=== PATIENT | female | born 1965 | race Caucasian/White ===

== ENCOUNTER 2019-01-11 13:15 | Outpatient (CLI) | payer OTHER | END 2019-01-11 13:16 | disposition home or self-care (01) | LOC: RT 13:15 | PROVIDERS: ATTEND Internal Medicine Cardiovascular Disease | DX: Z13.6 Encounter for screening for cardiovascular disorders (principal) | CPT/HCPCS: 93005 ==

== ENCOUNTER 2019-08-04 09:51 | Outpatient (CLI) | payer OTHER | END 2019-08-04 09:52 | disposition EMS.NT | LOC: EMS 09:51 | PROVIDERS: ATTEND Surgery | DX: R22.0 Localized swelling, mass and lump, head (principal); X58.XXXA Exposure to other specified factors, initial encounter ==

== ENCOUNTER 2023-02-05 02:49 | Emergency (ER) | payer MEDICAID, OTHER ==
[2023-02-05] MEDS ORDERED: ONDANSETRON 4 MG/2 ML VIAL IVP STA (03:34)
[2023-02-05] MEDS ORDERED: MORPHINE 2 MG/ML CARPUJECT IVP STA (03:34)
[2023-02-05] MEDS ORDERED: SODIUM CHLORIDE 0.9% 1,000 ML IV STA (03:34)
[2023-02-05 03:35] LABS: BASOPHILS % (AUTO) 0.5 %; EOSINOPHILS # (AUTO) 0.2 10^3/uL (0.0-0.7); HCT - HEMATOCRIT 40.8 % (37.0-47.0); HGB - HEMOGLOBIN 13.1 g/dL (12.0-16.0); LYMPHOCYTES # (AUTO) 2.7 10^3/uL (1.5-3.5); LYMPHOCYTES % (AUTO) 35.4 %; MEAN CORPUSCULAR HEMOGLOBIN 28.9 pg (27.0-31.0); MEAN CORPUSCULAR HGB CONC 32.1 g/dL (32.0-36.0); MEAN CORPUSCULAR VOLUME 90.1 fL (81.0-99.0); MEAN PLATELET VOLUME 10.7 fL (7.9-10.8); MONOCYTES # (AUTO) 0.7 10^3/uL (0.0-1.0); MONOCYTES % (AUTO) 8.5 %; NEUTROPHILS # (AUTO) 4.1 10^3/uL (1.5-6.6); NEUTROPHILS % (AUTO) 53.5 %; PLT - PLATELET COUNT 250 10^3/uL (130-450); RED BLOOD COUNT 4.53 10^6/uL (4.20-5.40); RED CELL DISTRIBUTION WIDTH 12.9 % (12.0-15.0); WHITE BLOOD COUNT 7.6 x10^3/uL (4.8-10.8)
[2023-02-05 03:35] LABS: BILIRUBIN,URINE NEGATIVE (NEGATIVE); CLARITY,URINE CLEAR (CLEAR); GLUCOSE, URINE (UA) NEGATIVE (NEGATIVE); KETONES,URINE (UA) TRACE mg/dL (NEGATIVE); LEUKOCYTE ESTERASE, URINE TRACE (NEGATIVE); NITRITE,URINE NEGATIVE (NEGATIVE); OCCULT BLOOD,URINE NEGATIVE (NEGATIVE); PH,URINE 5.5 PH (5.0-7.5); PROTEIN,URINE NEGATIVE (NEGATIVE); UROBILINOGEN,URINE 0.2 (NORMAL) E.U./dL (NORMAL)
[2023-02-05 03:40] LABS: BACTERIA,URINE Few /HPF (None Seen); RBC,URINE 0-5 /HPF (0-5); SQUAMOUS EPITHELIAL CELL,UR MOD Squamous (<= Few)
[2023-02-05 03:41] LABS: CASTS, URINE 3-5 Hyaline Casts /LPF; MUCUS,URINE Few Strands
[2023-02-05 03:44] LABS: ALBUMIN 4.2 g/dL (3.2-5.5); ALBUMIN/GLOBULIN RATIO 1.2 (1.0-2.2); BILIRUBIN,TOTAL 0.3 mg/dL (0.2-1.0); CALCIUM 9.2 mg/dL (8.5-10.3); CREATININE 0.9 mg/dL (0.4-1.0); POTASSIUM 3.9 mmol/L (3.5-5.0); TOTAL PROTEIN 7.8 g/dL (6.7-8.2)
[2023-02-05] MEDS ORDERED: iohexoL-300 100 ML VIAL ONE (03:45)
[2023-02-05] MEDS ORDERED: iohexoL-300 100 ML VIAL IVP ONE (04:21)
[2023-02-05] MEDS ORDERED: HYDROmorphone 1 MG/ML CARPUJECT IVP STA (04:30)
[2023-02-05 05:15] VITALS: BP 146/73
[2023-02-05] MEDS ORDERED: oxyCODONE/ACET 5/325 Prepack 4 PO STA (05:25)
--- NOTE | 2023-02-05 05:28 | ED Physician Documentation ---
PD HPI ABD PAIN - Stated complaint Stated Complaint: abd pain - Chief complaint Chief Complaint: Abd Pain - History obtained from History obtained from: Patient - Additional information Additional information: Patient is a 57-year-old female presenting for evaluation of mid abdominal pain at that feels sharp and crampy that has been ongoing since Tuesday. She reports some associated nausea but no vomiting. She denies diarrhea. Nothing makes her pain better or worse. She denies vaginal bleeding or discharge. She has a history of prior cardiac surgeries related to coarctation of the aorta. S he denies prior abdominal surgeries. She denies fever, chest pain, difficulty breathing, back pain.She denies prior history of similar symptoms. She had fries for dinner tonight. Review of Systems Constitutional: denies: Fever Cardiac: denies: Chest pain / pressure Respiratory: denies: Dyspnea GI: reports: Abdominal Pain. denies: Vomiting, Diarrhea : denies: Dysuria Musculoskeletal: denies: Back pain Neurologic: denies: Headache PD PAST MEDICAL HISTORY - Present Medications Home Medications: Ambulatory Orders Medication Instructions Recorded Confirmed Citalopram [CeleXA] 20 mg PO DAILY 02/05/23 02/05/23 Gabapentin Enacarbil [Horizant] 1,200 mg PO DAILY 02/05/23 02/05/23 Lisinopril [Zestril] 40 mg PO DAILY 02/05/23 02/05/23 Metoprolol Succinate 100 mg PO DAILY 02/05/23 02/05/23 Naltrexone HCl 50 mg PO DAILY 02/05/23 02/05/23 Oxycodone HCl/Acetaminophen 1 each PO Q6H PRN #14 tablet 02/05/23 [Percocet 5-325 mg Tablet] Quetiapine Fumarate [Seroquel] 50 mg PO HS 02/05/23 02/05/23 - Allergies Allergies/Adverse Reactions: Allergies Allergy/AdvReac Type Severity Reaction Status Date / Time Penicillins Allergy Unknown Verified 02/05/23 02:55 PD ED PE NORMAL - General General: Alert and oriented X 3, No acute distress, Well developed/nourished - HEENT HEENT: Atraumatic - Neck Neck: Supple, no meningeal sign - Cardiac Cardiac: RRR - Respiratory Respiratory: No respiratory distress, Clear bilaterally - Abdomen Abdomen: Normal bowel sounds, Soft, Non distended, Other (Periumbilical and lower abdominal tenderness to palpation) - Derm Derm: Warm and dry - Neuro Neuro: Normal speech Results - Vitals Vitals: Vital Signs - 24 hr 02/05/23 02/05/23 02/05/23 02:58 03:51 05:01 Temperature 36.9 C Heart Rate 71 61 57 L Respiratory 16 16 Rate Blood Pressure 149/88 H 150/67 H 146/73 H O2 Saturation 97 100 97 Oxygen O2 Source Room air - Labs Labs: Laboratory Tests 02/05/23 02/05/23 02/05/23 03:10 03:27 03:27 WBC 7.6 RBC 4.53 Hgb 13.1 Hct 40.8 MCV 90.1 MCH 28.9 MCHC 32.1 RDW 12.9 Plt Count 250 MPV 10.7 Neut # (Auto) 4.1 Lymph # (Auto) 2.7 [place] # (Auto) 0.7 Eos # (Auto) 0.2 Baso # (Auto) 0.0 Absolute Nucleated RBC 0.00 Nucleated RBC % 0.0 Sodium 138 Potassium 3.9 Chloride 103 Carbon Dioxide 26 Anion Gap 9.0 BUN 18 Creatinine 0.9 Estimated GFR (MDRD) 65 L Glucose 135 H Calcium 9.2 Total Bilirubin 0.3 AST 24 ALT 27 Alkaline Phosphatase 87 Total Protein 7.8 Albumin 4.2 Globulin 3.6 Albumin/Globulin Ratio 1.2 Lipase 29 Urine Color YELLOW Urine Clarity CLEAR Urine pH 5.5 Ur Specific [place] >=1.030 H Urine Protein NEGATIVE Urine Glucose (UA) NEGATIVE Urine Ketones TRACE Urine Occult Blood NEGATIVE Urine Nitrite NEGATIVE Urine Bilirubin NEGATIVE Urine Urobilinogen 0.2 (NORMAL) Ur Leukocyte Esterase TRACE H Urine RBC 0-5 Urine WBC 4-5 Ur Squamous Epith Cells MOD Squamous H Urine Bacteria Few Urine Casts 3-5 Hyaline Casts Urine Mucus Few Strands Ur Microscopic Review INDICATED Urine Culture Comments NOT INDICATED PD Medical Decision Making - ED course Complexity details: reviewed results, re-evaluated patient, d/w patient ED course: Patient presenting for evaluation of abdominal pain. Her vital signs are stable. Her pain is primarily in the lower to mid abdomen. CBC and chemistries were reviewed without significant findings. Urine is negative for infection. CT scan of the abdomen and pelvis was obtained and demonstrates a fibroid uterus. I also reviewed the images and see abnormalities of radiopaque Objects in the stomach of unclear etiology. I reviewed this finding with the patient and she is unsure of eating or ingesting anything abnormal.There are no prior scans for comparison through our system. I discussed the case with on-call surgeon Dr. Santana given the abnormality and size of some of the foreign bodies including one that measures up to 3.3 cm. He is also perplexed as to what the etiology of these findings could be but suggest that patient return to the emergency department in [address] scan. He would expect that these should have moved on by then but if they are persistent he would consider performing an upper endoscopy. Patient does not currently appear septic. She does not have peritoneal signs. She felt better after receiving IV narcotic medications for her pain including morphine and 1 dose of Dilaudid. She was given a small amount of narcotic pain medications for her pain which I feel is more likely related to the fibroid uterus found on imaging. Patient is counseled on need for close follow-up as well as to return on Tuesday for repeat CT scan.She additionally is advised on strict return precautions. Departure - Departure Disposition: Home, Self Care Clinical Impression: Abdominal pain, Fibroid uterus, Foreign body in stomach Instructions: ED Abdominal Pain Female Non-Specific Abdominal Pain, ED Fibroids Prescriptions: Oxycodone HCl/Acetaminophen [Percocet 5-325 mg Tablet] 1 each PO Q6H PRN #14 tablet PRN Reason: pain Comments: Your lab work today is reassuring. However you do have some abnormality seen on the CT scan of your abdomen and pelvis.You do have a fibroid uterus which could be causing your lower abdominal pain. In addition there were a few Fragments seen inside your stomach which are concerning for foreign bodies. It is unclear what these could be from. I did speak with our surgeon on-call and he recommen ds that you return to the emergency department in 3 days for repeat scan. We would expect anything in the stomach to clear out by then. However if there are still abnormal findings then he may recommend a procedure where he looks inside the stomach with a camera to retrieve the foreign bodies.If it anytime before then you have any worsening pain or fever please return to the emergency department. I have also sent a small amount of narcotic pain medication to [facility] in [place]. I would also recommend close follow-up with your primary care doctor.
--- NOTE | 2023-02-05 09:02 | CT Report ---
PROCEDURE: ABDOMEN/PELVIS W INDICATIONS: mid abd pain CONTRAST: 100 ML OMNI 300 TECHNIQUE: After the administration of 100 mL contrast, 5 mm thick sections acquired from the diaphragms to the symphysis. 5 mm thick coronal and sagittal reformats were acquired. For radiation dose reduction, t he following was used: automated exposure control, adjustment of mA and/or kV according to patient s ize. COMPARISON: None. FINDINGS: Image quality: Excellent. ABDOMEN: Lung bases: Lung bases are clear. Heart size is normal. Solid organs: Liver and spleen are normal in size and enhancement. Gallbladder appears normal. Carlos iary system is non dilated. Pancreas enhances normally. No adrenal nodules. Kidneys demonstrate no rmal size and enhancement, without hydronephrosis. Peritoneum and bowel: Bowel loops demonstrate normal wall thickness and caliber. No free fluid or a ir. Several diverticula without evidence of acute diverticulitis. Multiple bone densities are within the stomach largest measuring up to 3.4 cm with a cylindrical appe arance. Other smaller densities within the stomach have a rounded morphology Nodes and vessels: No retroperitoneal or mesenteric adenopathy by size criteria. Aorta and inferior vena cava are normal in size. Miscellaneous: No ventral hernias. PELVIS: Genitourinary: Bladder wall thickness is normal. Lobulated fibroid uterus. Miscellaneous: No inguinal hernias or adenopathy. Bones: No suspicious bony lesions. No vertebral body compression fractures. IMPRESSION: 1.Several hyperdensities within the lumen of the stomach are likely enteric contents. 2.Fibroid uterus. 3.Colonic diverticula without evidence of diverticulitis. Reviewed by: Mohinder Pierce MD on 02/05/2023 8:01 AM MICHELLE Approved by: Mohinder Pierce MD on 02/05/2023 8:01 AM MICHELLE Station ID: [id number]
--- NOTE | 2023-02-05 14:41 | ED Physician Documentation ---
ED Addendum - Addendum Addendum: 02/05/23 14:37 The original prescription for oxycodone did not go through shows pending awaiting signature on Dr. Taylor. Therefore I canceled the prescription and resent the prescription to [facility] in [place]. Departure - Departure Disposition: 01 Home, Self Care Clinical Impression: Abdominal pain, Fibroid uterus, Foreign body in stomach Instructions: ED Abdominal Pain Female Non-Specific Abdominal Pain, ED Fibroids Prescriptions: Oxycodone HCl/Acetaminophen [Percocet 5-325 mg Tablet] 1 - 2 each PO Q6H PRN #14 tablet MDD 6 tabs PRN Reason: pain Comments: Your lab work today is reassuring. However you do have some abnormality seen on the CT scan of your abdomen and pelvis.You do have a fibroid uterus which could be causing your lower abdominal pain. In addition there were a few Fragments seen inside your stomach which are concerning for foreign bodies. It is unclear what these could be from. I did speak with our surgeon on-call and he recommends that you return to the emergency department in 3 days for repeat scan. We would expect anything in the stomach to clear out by then. However if there are still abnormal findings then he may recommend a procedure where he looks inside the stomach with a camera to retrieve the foreign bodies.If it anytime before then you have any worsening pain or fever please return to the emergency department. I have also sent a small amount of narcotic pain medication to [facility] in [place]. I would also recommend close follow-up with your primary care doctor. Discharge Date/Time: 02/05/23 05:44
== END 2023-02-05 05:44 | disposition home or self-care (01) ==
LOC: ED 02:49
DX: D25.9 Leiomyoma of uterus, unspecified (principal); T18.2XXA Foreign body in stomach, initial encounter; X58.XXXA Exposure to other specified factors, initial encounter
CPT/HCPCS: 36415; 74177; 80053; 81001; 83690; 85025; 96374; 96375; 99284; J1170; Q9967; 81003; 87086

== ENCOUNTER 2024-01-31 08:00 | Outpatient (CLI) | payer MEDICAID, OTHER ==
--- NOTE | 2024-01-31 21:26 | XRAY Report ---
PROCEDURE: Chest 2V INDICATIONS: RESPIRATORY CRACKLES TECHNIQUE: 2 views of the chest were acquired. COMPARISON: Wrist radiograph on June 05, 2023. FINDINGS: Surgical changes and devices: Surgical clips in the mediastinum. Lungs and pleura: No pleural effusions or pneumothorax. Mild bilateral perihilar bronchial wall thi ckening. No focal pulmonary consolidation. Previously described indistinct opacity in the right upper lung zone is no longer seen. Mediastinum: Mediastinal contours appear normal. Heart size is normal. Bones and chest wall: No suspicious bony lesions. Overlying soft tissues appear unremarkable. Mild multilevel degenerative changes of the spine. IMPRESSION: 1.Mild bilateral perihilar bronchial wall thickening suggestive of reactive airways disease and/or vi ral pneumonia. No focal pulmonary consolidation. 2.Previously described indistinct opacity in the right upper lung zone is no longer seen. Reviewed by: Peterson De Leon MD on 01/31/2024 9:25 PM PDT Approved by: Peterson De Leon MD on 01/31/2024 9:25 PM PDT Station ID: [id number]
== END 2024-01-31 23:59 | disposition home or self-care (01) ==
LOC: DI.S 08:00
PROVIDERS: ATTEND Nurse Practitioner Family
DX: R91.8 Other nonspecific abnormal finding of lung field (principal)